=== PATIENT | male | born 1965 | race Caucasian/White ===

== ENCOUNTER → 2017-02-13 | Outpatient (REF) | payer BC | LOC: M LAB REF 13:51 | PROVIDERS: ATTEND Physician Assistant | DX: K42.9 Umbilical hernia without obstruction or gangrene (principal) ==

== ENCOUNTER 2017-06-15 10:01 | Day surgery (SDC) | payer BC ==
[~2017-06-15] VITALS: Ht 175.3 cm; Wt 93.0 kg
[~2017-06-15 10:01] MED LIST: CLON0.5T PO; PANT40TA2 PO; PRAV20TA2 PO; SERT-138 PO
[2017-06-15] MEDS ORDERED: LR 1,000 ML IV ONE (10:15)
[2017-06-15] MEDS ORDERED: PROPOFOL 200 MG/20 ML VIAL As Ordered ONE (13:10)
[2017-06-15] MEDS ORDERED: KETOROLAC 60 MG/2 ML VIAL (J1885) As Ordered ONE (13:10)
[2017-06-15] MEDS ORDERED: METOCLOPRAMIDE INJ 10MG/2ML VIAL (J2765) As Ordered ONE (13:10)
[2017-06-15] MEDS ORDERED: LIDOCAINE 2% INJ 100 MG/5 ML SDV (FOR ANES.) As Ordered ONE (13:10)
[2017-06-15] MEDS ORDERED: ONDANSETRON 4MG/2ML VIAL (J2405) As Ordered ONE (13:10)
[2017-06-15] MEDS ORDERED: ROCURONIUM BROMIDE 50 MG/5 ML VIAL/SYRINGE As Ordered ONE (13:10)
[2017-06-15] MEDS ORDERED: MIDAZOLAM INJ 2 MG/2 ML VIAL (J2250) As Ordered ONE (13:10)
[2017-06-15] MEDS ORDERED: fentaNYL 100 MCG/2 ML INJECTION (J3010) As Ordered ONE (13:11)
[2017-06-15] MEDS ORDERED: LIDOCAINE 1% SDV INJ 30 ML VIAL As Ordered ONE (13:12)
[2017-06-15] MEDS ORDERED: BUPIVACAINE HCL 0.25% 30 ML VIAL As Ordered ONE (13:12)
[2017-06-15] MEDS ORDERED: fentaNYL 100 MCG/2 ML INJECTION (J3010) IV PRN (15:00)
[2017-06-15] MEDS ORDERED: LR 1,000 ML IV SCH (15:00)
[2017-06-15] MEDS ORDERED: PERCOCET 5MG/325MG TAB PO PRN (15:00)
[2017-06-15] MEDS ORDERED: ONDANSETRON 4MG/2ML VIAL (J2405) IV PRN (15:00)
[2017-06-15] MEDS ORDERED: NORCO, ANEXSIA 5/325MG TABLET (HYDROcodone/ACETAMINOPHEN) PO PRN ×2 (15:00)
[2017-06-15 16:30] VITALS: BP 135/80
[2017-06-15] MEDS ORDERED: KETOROLAC 30 MG/ML VIAL (J1885) IV PRN (20:00)
--- NOTE | 2017-07-03 09:50 | ROOPDOC ---
[facility] Report Of Operation Report of Operation DATE OF PROCEDURE: 06/15/2017 PREPROCEDURE DIAGNOSES: Umbilical hernia. POSTPROCEDURE DIAGNOSES: Umbilical hernia. PROCEDURE: Open umbilical hernia repair with ventral patch mesh placed. SURGEON: Aman Herman MD LIMNOLOGIST: none ANESTHESIA: Gen. anesthesia ESTIMATED BLOOD LOSS: Approximately 10 mL. COMPLICATIONS: None. REMARKS: 53-year-old male who while at work felt a pop on his umbilicus with associated sharp pain and there are noted a bulge on the bottom part of his umbilicus.. PROCEDURE NOTE: Small roughly 1 cm defect with incarcerated preperitoneal fat; above it is another less than 1 cm incarcerated preperitoneal fat within tiny millimeter defect.. DESCRIPTION OF PROCEDURE: Patient was given 2 g IV of Ancef preoperatively for wound prophylaxis. He was brought to the operating room placed supine on the table. Compression boots placed on his lower extremities were DVT prophylaxis. His abdomen then prepped and draped in usual sterile fashion.Timeouts were performed using both preinduction and pre-incision safety checklist to verify correct patient, procedure site and additional clinical information prior to beginning the procedure Curvilinear incision created at the inferior edge of the umbilical skin cleft. This is deepened through the subcutaneous area. The nodularity at this area was noted and this was from the umbilical skin cleft. This was deepened to the level of the anterior fascia. This was removed from its adhesion to the fascia and pulled up and divided them between hemostats and tied off. This is reduced back into the abdomen. Combination of finger dissection and blunt dissection using a 4 x 4 gauze was done underneath the fascial edge. We checked for hemostasis. The subcutaneous tissue was cleared off from the anterior fascia. While doing this I noted another small hernia best a centimeter at the superior edge. This also was containing incarcerated preperitoneal fat this was removed and the fascial edge was debrided and closed with 0 Vicryl. After evaluating the area and about a 2 cm defect. It shows a 4.3 cm ventral patch mesh. This was inserted into the abdomen and pulled up with its tabs. This was secured with horizontal mattress using 0 Ethibond's on its 4 corners. The tabs were incorporated with the sutures and divided at the fascial edge. The fascial edge was approximated with 0 Vicryl in a mattress fashion. After checking for hemostasis we then put back the umbilical cleft its anatomic location the bottom of the skin cleft secured to the fascia with 3-0 Vicryl. Incision was then closed in layers with 3-0 Vicryl in the subcutaneous and dermal area and 4- 0 Monocryl to close the skin in subcuticular fashion. Steri-Strips and gauze dressings to an used to cover the incision. Patient was found. Awakened, extubated and brought to recovery room stable AMAN HERMAN MD Jul 03, 2017 09:50
== END 2017-06-15 16:35 | disposition home or self-care (01) ==
LOC: M SDC 10:01
PROVIDERS: ATTEND Surgery
DX: K42.9 Umbilical hernia without obstruction or gangrene (principal); E78.00 Pure hypercholesterolemia, unspecified; F41.9 Anxiety disorder, unspecified; F32.9 Major depressive disorder, single episode, unspecified; K21.9 Gastro-esophageal reflux disease without esophagitis; R06.83 Snoring; Z72.0 Tobacco use; Z79.899 Other long term (current) drug therapy
CPT/HCPCS: 49585; 88302; C1781; J0690; J1885; J2250; J2405; J2765; J3010